=== PATIENT | female | born 1975 | race Caucasian/White ===

== ENCOUNTER 2016-11-29 19:05 | Emergency (ER) | payer SELFPAY ==
[2016-11-29 19:54] LABS: Basophils % (Auto) 0.3 % (0.0-1.8); Eosinophils % (Auto) 0.9 % (0.0-4.3); Hematocrit 36.4 % (30.3-42.9); Mean Corpuscular HGB Conc 33 % (30-34); Mean Corpuscular Hemoglobin 28 pg (28-32); Mean Corpuscular Volume 86 fl (79-97); Platelet Count 257 K/mm3 (140-440); Red Blood Count 4.23 M/mm3 (3.65-5.03); Red Cell Distribution Width 13.3 % (13.2-15.2); White Blood Count 12.1 K/mm3 (4.5-11.0)
[2016-11-29 20:33] LABS: Alanine Aminotransferase 13 units/L (7-56); Albumin 4.1 g/dL (3.9-5); Albumin/Globulin Ratio 1.2 %; Alkaline Phosphatase 60 units/L (35-129); Anion Gap 18 mmol/L; Blood Urea Nitrogen 7 mg/dL (7-17); Calcium 9.3 mg/dL (8.4-10.2); Carbon Dioxide 25 mmol/L (22-30); Chloride 100.8 mmol/L (98-107); Glucose 100 mg/dL (65-100); Lipase 20 units/L (13-60); Potassium 3.8 mmol/L (3.6-5.0); Sodium 140 mmol/L (137-145); Total Protein 7.6 g/dL (6.3-8.2)
[2016-11-29 22:10] LABS: Bilirubin,Urine NEG (Negative); Blood,Urine SM (Negative); Ketones,Urine NEG (Negative); Leukocyte Esterase,Urine NEG (Negative); Mucus,Urine FEW /HPF; Nitrite,Urine NEG (Negative); Protein,Urine <15 mg/dL mg/dL (Negative); Urobilinogen,Urine < 2.0 mg/dL (<2.0)
[2016-11-29] MEDS ORDERED: D5NS 1,000 ML IV SCH (23:00)
--- NOTE | 2016-11-29 23:31 | Emergency Department Report ---
ED Syncope HPI - General Chief Complaint: Abdominal Pain Stated Complaint: DIZZY/PASSED OUT Time Seen by Provider: 11/29/16 21:53 Source: patient Exam Limitations: no limitations - History of Present Illness Initial Comments: 41-year-old female with Past medical history presents to the hospital with complaints of syncope today. Patient has been fasting secondary to Ramadan and has not had much to eat or drink the last 2 days. He is not allowed to eat or drink anything throughout the day until 9 PM. She did have something to eat or drink last night and again 4 AM this morning. She ambulated to a family member 's house and while standing had a syncopal episode and fell backwards. Family members were able to catch her and break her fall. Patient complains of epigastric discomfort described as a pressure that comes and goes. She denies headache, chest pain, shortness of breath, nausea, vomiting, diarrhea, infectious symptoms, vaginal bleeding, melena, or hematochezia - Related Data Allergies/Adverse Reactions: Allergies No Known Allergies Allergy (Verified 11/29/16 22:21) Home Medications: Ambulatory Orders No Known Home Medications [No Reported Home Medications] 11/29/16 ED Review of Systems ROS: Stated complaint: DIZZY/PASSED OUT Other details as noted in HPI Comment: All other systems reviewed and negative Other: Constitutional: No fevers chills Eyes: No eye pain visual changes ENT: No ear pain or throat pain Neck: Denies pain Respiratory: Denies cough wheezing shortness of breath Cardiovascular: Denies chest pain, palpitations, syncope GI: as per hpi. Patient complains of chronic constipation and uses laxities regularly for several years : Denies dysuria Musculoskeletal: Denies back pain Skin: Denies rash, lesions, erythema Neurologic: Denies headache, numbness, weakness Psychiatric: Denies suicidal ideation, hallucinations ED Past Medical Hx - Past Medical History Previous Medical History?: No Hx Hypertension: No Hx CVA: No Hx Heart Attack/AMI: No Hx Congestive Heart Failure: No Hx Diabetes: No Hx Deep Vein Thrombosis: No Hx Pulmonary Embolism: No Hx GERD: No Hx Liver Disease: No Hx Renal Disease: No Hx of Cancer: No Hx Sickle Cell Disease: No Hx Arthritis: No Hx Headaches / Migraines: No Hx Seizures: No Hx Kidney Stones: No Hx Psychiatric Treatment: No Hx Asthma: No Hx COPD: No Hx Tuberculosis: No Hx Dementia: No Hx HIV: No - Surgical History Past Surgical History?: Yes Hx Coronary Stent: No Hx Open Heart Surgery: No Hx Pacemaker: No Hx Internal Defibrillator: No Hx Cholecystectomy: No Hx Appendectomy: No Hx Breast Surgery: No Additional Surgical History: cysartian - Social History Smoking Status: Never Smoker Substance Use Type: None - Medications Home Medications: Home Medications Medication Instructions Recorded Confirmed Last Taken Type No Known Home Medications [No 11/29/16 11/29/16 Unknown History Reported Home Medications] ED Physical Exam - General Limitations: No Limitations - Other Other exam information: General: No limitations, patient is alert in no acute distress Head exam: Atraumatic, normocephalic Eyes exam: Normal appearance ENT: Moist mucous membrane, normal oropharynx Neck exam: Normal inspection, full range of motion, no meningismus nontender Respiratory exam: Clear to auscultation bilateral, no wheezes, rales, crackles Cardiovascular: Normal rate and rhythm, normal heart sounds Abdomen: Soft, nondistended, mild epigastric discomfort, with normal bowel sounds, no rebound, or guarding Extremity: Full range of motion normal inspection no deformity Back: Normal Inspection, full range of motion, no tenderness Neurologic: Alert, oriented x3, cranial nerves intact, no motor or sensory deficit Psychiatric: normal affect, normal mood Skin: Warm, dry, intact ED Course Vital Signs 11/29/16 11/29/16 11/29/16 19:22 19:32 21:58 Temperature 99.0 F 99.0 F Pulse Rate 90 90 76 Respiratory 16 18 18 Rate Blood Pressure 117/75 Blood Pressure 117/75 124/79 [Right] O2 Sat by Pulse 100 100 100 Oximetry - Reevaluation(s) Reevaluation #1: 11/30/16 00:20 Orthostatics were unremarkable however, patient's symptoms improved with 1 L D5NS. Patient also ate food provided by her family and reports feeling better. ED Medical Decision Making - Lab Data Result diagrams: 11/29/16 19:42 11/29/16 19:42 Lab Results 11/29/16 11/29/16 11/29/16 Range/Units 19:16 19:42 19:42 WBC 12.1 H (4.5-11.0) K/mm3 RBC 4.23 (3.65-5.03) M/mm3 Hgb 12.0 (10.1-14.3) gm/dl Hct 36.4 (30.3-42.9) % MCV 86 (79-97) fl MCH 28 (28-32) pg MCHC 33 (30-34) % RDW 13.3 (13.2-15.2) % Plt Count 257 (140-440) K/mm3 Lymph % (Auto) 31.1 (13.4-35.0) % [place] % (Auto) 7.6 H (0.0-7.3) % Eos % (Auto) 0.9 (0.0-4.3) % Baso % (Auto) 0.3 (0.0-1.8) % Lymph # 3.8 (1.2-5.4) K/mm3 Alpine # 0.9 H (0.0-0.8) K/mm3 Eos # 0.1 (0.0-0.4) K/mm3 Baso # 0.0 (0.0-0.1) K/mm3 Seg Neutrophils % 60.1 (40.0-70.0) % Seg Neutrophils # 7.3 (1.8-7.7) K/mm3 Sodium 140 (137-145) mmol/L Potassium 3.8 (3.6-5.0) mmol/L Chloride 100.8 (98-107) mmol/L Carbon Dioxide 25 (22-30) mmol/L Anion Gap 18 mmol/L BUN 7 (7-17) mg/dL Creatinine 0.7 (0.7-1.2) mg/dL Estimated GFR > 60 ml/min BUN/Creatinine Ratio 10.00 % Glucose 100 (65-100) mg/dL POC Glucose 112 H (70-105) Calcium 9.3 (8.4-10.2) mg/dL Total Bilirubin 0.40 (0.1-1.2) mg/dL AST 14 (5-40) units/L ALT 13 (7-56) units/L Alkaline Phosphatase 60 (35-129) units/L Troponin T (0.00-0.029) ng/mL Total Protein 7.6 (6.3-8.2) g/dL Albumin 4.1 (3.9-5) g/dL Albumin/Globulin Ratio 1.2 % Lipase 20 (13-60) units/L Urine Color (Yellow) Urine Turbidity (Clear) Urine pH (5.0-7.0) Ur Specific [place] (1.003-1.030) Urine Protein (Negative) mg/dL Urine Glucose (UA) (Negative) mg/dL Urine Ketones (Negative) mg/dL Urine Blood (Negative) Urine Nitrite (Negative) Ur Reducing Substances Urine Bilirubin (Negative) Urine Ictotest Urine Urobilinogen (<2.0) mg/dL Ur Leukocyte Esterase (Negative) Urine WBC (Auto) (0.0-6.0) /HPF Urine RBC (Auto) (0.0-6.0) /HPF U Epithel Cells (Auto) (0-13.0) /HPF Urine Mucus /HPF Urine HCG, Qual (Negative) 11/29/16 11/29/16 Range/Units 19:42 21:51 WBC (4.5-11.0) K/mm3 RBC (3.65-5.03) M/mm3 Hgb (10.1-14.3) gm/dl Hct (30.3-42.9) % MCV (79-97) fl MCH (28-32) pg MCHC (30-34) % RDW (13.2-15.2) % Plt Count (140-440) K/mm3 Lymph % (Auto) (13.4-35.0) % Alpine % (Auto) (0.0-7.3) % Eos % (Auto) (0.0-4.3) % Baso % (Auto) (0.0-1.8) % Lymph # (1.2-5.4) K/mm3 Alpine # (0.0-0.8) K/mm3 Eos # (0.0-0.4) K/mm3 Baso # (0.0-0.1) K/mm3 Seg Neutrophils % (40.0-70.0) % Seg Neutrophils # (1.8-7.7) K/mm3 Sodium (137-145) mmol/L Potassium (3.6-5.0) mmol/L Chloride (98-107) mmol/L Carbon Dioxide (22-30) mmol/L Anion Gap mmol/L BUN (7-17) mg/dL Creatinine (0.7-1.2) mg/dL Estimated GFR ml/min BUN/Creatinine Ratio % Glucose (65-100) mg/dL POC Glucose (70-105) Calcium (8.4-10.2) mg/dL Total Bilirubin (0.1-1.2) mg/dL AST (5-40) units/L ALT (7-56) units/L Alkaline Phosphatase (35-129) units/L Troponin T < 0.010 (0.00-0.029) ng/mL Total Protein (6.3-8.2) g/dL Albumin (3.9-5) g/dL Albumin/Globulin Ratio % Lipase (13-60) units/L Urine Color Yellow (Yellow) Urine Turbidity Clear (Clear) Urine pH 6.0 (5.0-7.0) Ur Specific [place] 1.011 (1.003-1.030) Urine Protein <15 mg/dl (Negative) mg/dL Urine Glucose (UA) Neg (Negative) mg/dL Urine Ketones Neg (Negative) mg/dL Urine Blood Sm (Negative) Urine Nitrite Neg (Negative) Ur Reducing Substances Not Reportable Urine Bilirubin Neg (Negative) Urine Ictotest Not Reportable Urine Urobilinogen < 2.0 (<2.0) mg/dL Ur Leukocyte Esterase Neg (Negative) Urine WBC (Auto) 1.0 (0.0-6.0) /HPF Urine RBC (Auto) 3.0 (0.0-6.0) /HPF U Epithel Cells (Auto) 1.0 (0-13.0) /HPF Urine Mucus Few /HPF Urine HCG, Qual Negative (Negative) - EKG Data -: EKG Interpreted by Me (sinus raet 83 with sinus arrhythmia) - Medical Decision Making Patient did not have any other symptoms other than epigastric discomfort likely secondary to hunger which improved after eating. Patient feels better after hydration. Patient like he needs to increase her fluid and food intake during the hours she is permitted to eat during Ramadan. Patient has ongoing constipation and takes Lasix attempt chronically. I suggested that she increase her fiber intake and fluid intake. Will give discharge instructions regarding high fiber diet - Differential Diagnosis dehydration, anemia, vasovagal, hypoglycemia Critical Care Time: No Critical care attestation.: If time is entered above; I have spent that time in minutes in the direct care of this critically ill patient, excluding procedure time. ED Disposition Clinical Impression: Syncope, Poor fluid intake, Chronic constipation Disposition: DISCHARGED TO HOME OR SELFCARE Is pt being admited?: No Does the pt Need Aspirin: No Condition: Stable Instructions: Syncope (ED), Dehydration (ED), High Fiber Diet (ED) Additional Instructions: Try to increase your food and fluid intake during the nonfasting hours during Ramadan. Follow-up with your physician or the doctor/clinic provided. Return if symptoms worsen. Referrals: PRIMARY MD RONNELL [Primary Care Provider] - 3-5 Days [facility] [Provider Group] - 3-5 Days (Primary care clinic) JANINE CHAVEZ JR, MD [Staff Physician] - 3-5 Days (Primary care doctor) Time of Disposition: 00:24
[2016-11-30 01:33] VITALS: BP 122/71
== END 2016-11-30 01:33 | disposition home or self-care (01) ==
LOC: ED 19:05
DX: K59.09 Other constipation (principal); R55 Syncope and collapse; R63.8 Other symptoms and signs concerning food and fluid intake
CPT/HCPCS: 36415; 80053; 81001; 81025; 82962; 83690; 84484; 85025; 93005; 93010; 96360; 99284; J7042